=== PATIENT | male | born 1930 | race Caucasian/White ===

== ENCOUNTER → 2016-11-23 | Outpatient (CLI) | payer MEDICARE ==
[~2016-11-23] MED LIST: ALPR0.254 PO; CEFD300C37 PO; CHOL5000 PO; DOXY100T PO; FURO-93 PO; HYDR-3144 PO; LEVO137T3 PO; METO-93 PO; METO25TA9 PO; OMEP40CA6 PO; POTA10TA11 PO; POTA25TA4 PO; PRED5TAB PO; SILD50TA PO; SIMV80TA3 PO; SPIR25TA PO; SYMBICORT INHALER PO; TESTOSTERONE TP; TIOT18CA INH; WARF5TAB7 PO
== END | disposition home or self-care (01) ==
LOC: CFH 14:41
PROVIDERS: ATTEND Internal Medicine Gastroenterology
DX: K30 Functional dyspepsia (principal); J44.9 Chronic obstructive pulmonary disease, unspecified; D53.9 Nutritional anemia, unspecified; N19 Unspecified kidney failure; Z79.01 Long term (current) use of anticoagulants
CPT/HCPCS: 74220

== ENCOUNTER → 2016-12-06 | Outpatient (CLI) | payer MEDICARE | END | disposition home or self-care (01) | LOC: CFH 14:29 | PROVIDERS: ATTEND Internal Medicine Cardiovascular Disease | DX: I51.7 Cardiomegaly (principal); Z95.3 Presence of xenogenic heart valve; Z95.2 Presence of prosthetic heart valve | CPT/HCPCS: 93306 ==

== ENCOUNTER 2017-01-22 07:20 | Day surgery (SDC) | payer MEDICARE ==
[~2017-01-22] VITALS: Ht 175.3 cm; Wt 70.0 kg
[~2017-01-22 07:20] MED LIST changes: +ALPR0.25 PO; +ANAS1TAB3 PO; +BUDE10.2 PO; +DIGO125T6 PO; +GUAI-42 PO; +HYDR-879 PO; +LEVO150T PO; +LORA10TA75 PO; +METO25TA2 PO; +MULT-412 PO; +OMEP20TA62 PO; +OXYGEN NS; +POLY17PO5 PO; +SIMV40TA PO; +TEMA15CA6 PO; +TEST200V IM; +WARF5TAB PO
[2017-01-22] MEDS ORDERED: LACTATED RINGERS 1,000 ML IV SCH (07:51)
[2017-01-22 08:00] VITALS: BP 124/75
[2017-01-22 08:21] LABS: HEMATOCRIT 36.9 % (39.2-51.8); WHITE BLOOD COUNT 6.5 x10^3/uL (3.4-10)
[2017-01-22 08:33] LABS: ASPARTATE AMINO TRANSFERASE 30 U/L (15-37); BLOOD UREA NITROGEN 37 mg/dL (7-18)
[2017-01-22] MEDS ORDERED: FENTANYL PF 100 MCG/2ML ONE (08:49)
[2017-01-22] MEDS ORDERED: PROPOFOL 10 MG/ML, 20ML ONE (08:54)
[2017-01-22] MEDS ORDERED: HYDROcodone/APAP 7.5-325MG/15ML UDC ONE (09:24)
[2017-01-22] MEDS ORDERED: ALBUTEROL SULFATE 2.5 MG/3 ML NPPB PRN (09:30)
[2017-01-22] MEDS ORDERED: LABETALOL 5MG/ML, 20ML IV PRN (09:30)
[2017-01-22] MEDS ORDERED: FENTANYL PF 100 MCG/2ML IV PRN (09:30)
[2017-01-22] MEDS ORDERED: EPHEDRINE 50 MG/ML, 1ML IVPush PRN (09:30)
[2017-01-22] MEDS ORDERED: ACETAMINOPHEN 325 MG TABLET PO PRN (09:30)
[2017-01-22] MEDS ORDERED: HYDROmorphone 1 MG/ML, 1ML IV PRN (09:30)
[2017-01-22] MEDS ORDERED: ONDANSETRON 2MG/ML, 2ML IVPush PRN (09:30)
[2017-01-22] MEDS ORDERED: ALBUTEROL/IPRATROPIUM 2.5MG/0.5MG, 3 ML NPPB PRN (09:30)
[2017-01-22] MEDS ORDERED: METOPROLOL 1 MG/ML, 5ML IV PRN (09:30)
[2017-01-22] MEDS ORDERED: HYDROcodone/APAP 7.5-325MG/15ML UDC PO PRN (09:30)
== END 2017-01-22 11:25 ==
LOC: OUT 07:20
PROVIDERS: ATTEND Internal Medicine Gastroenterology
DX: K22.2 Esophageal obstruction (principal); K22.8 Other specified diseases of esophagus; I10 Essential (primary) hypertension; J44.9 Chronic obstructive pulmonary disease, unspecified; I48.91 Unspecified atrial fibrillation; I25.10 Atherosclerotic heart disease of native coronary artery without angina pectoris; E78.5 Hyperlipidemia, unspecified; E03.9 Hypothyroidism, unspecified; D50.9 Iron deficiency anemia, unspecified; Z87.39 Personal history of other diseases of the musculoskeletal system and connective tissue; Z87.891 Personal history of nicotine dependence; Z98.890 Other specified postprocedural states; Z88.8 Allergy status to other drugs, medicaments and biological substances
CPT/HCPCS: 36415; 43239; 43248; 80053; 85025; 85610; 85730; 88305; J2704; J3010; J7120

== ENCOUNTER 2017-02-22 03:13 | Inpatient (IN) | payer MEDICARE ==
[~2017-02-22] VITALS: Ht 172.7 cm; Wt 63.6 kg
[~2017-02-22 03:13] MED LIST changes: -HYDR-3144 PO; +HYDR-3245 PO
[2017-02-22] MEDS ORDERED: DILTIAZEM 5 MG/ML, 5ML ONE (03:19)
[2017-02-22] MEDS ORDERED: SODIUM CHLORIDE FLUSH 10ML SYR IVF ONE (03:30)
[2017-02-22] MEDS ORDERED: SODIUM CHLORIDE 0.9% 1,000ML IVBOLUS ONE (03:30)
[2017-02-22] MEDS ORDERED: DILTIAZEM 5 MG/ML, 5ML IV ONE (03:30)
[2017-02-22 03:33] LABS: HEMATOCRIT 40.7 % (39.2-51.8); WHITE BLOOD COUNT 9.2 x10^3/uL (3.4-10)
[2017-02-22 03:53] LABS: BLOOD UREA NITROGEN 48 mg/dL (7-18)
[2017-02-22] MEDS: DILTIAZEM 125 MG in DEXTROSE 5% 100 ML IV SCH ×3 (03:56→05:42)
[2017-02-22 03:59] LABS: ASPARTATE AMINO TRANSFERASE 35 U/L (15-37)
[2017-02-22 04:00] LABS: IS PT STATUS REG ER OR PRE ER? YES
[2017-02-22] MEDS ORDERED: ASPIRIN 325 MG TABLET ONE (04:23)
[2017-02-22] MEDS ORDERED: ASPIRIN 325 MG TABLET PO ONE (04:30)
[2017-02-22 05:13] VITALS: BP 96/57
[2017-02-22] MEDS ORDERED: SODIUM CHLORIDE 0.9% 1,000 ML IV SCH (05:24)
[2017-02-22] MEDS ORDERED: DILTIAZEM 5 MG/ML, 5ML IVPush PRN (05:30)
[2017-02-22] MEDS ORDERED: ONDANSETRON 2MG/ML, 2ML IVPush PRN (05:30)
[2017-02-22] MEDS ORDERED: hydrALAzine 20 MG/ML, 1ML IVPush PRN (05:30)
[2017-02-22] MEDS ORDERED: morphine SULFATE 10 MG/ML, 1ML IVPush PRN (05:30)
[2017-02-22] MEDS ORDERED: ACETAMINOPHEN 325 MG TABLET PO PRN (05:30)
[2017-02-22] MEDS ORDERED: ENOXAPARIN 30 MG/0.3 ML SQ SCH (06:00)
[2017-02-22 07:21] VITALS: BP 99/58
[2017-02-22] MEDS ORDERED: ALBUTEROL/IPRATROPIUM 2.5MG/0.5MG, 3 ML ONE ×2 (08:03→11:35)
[2017-02-22] MEDS: POLYETHYLENE GLYCOL 17 GM PACKET PO SCH (09:00)
[2017-02-22] MEDS: DIGOXIN 0.125 MG TABLET PO SCH (09:12)
[2017-02-22] MEDS: LORATADINE 10 MG TABLET PO SCH (09:12)
[2017-02-22] MEDS: LEVOTHYROXINE 150 MCG TABLET PO SCH (09:12)
[2017-02-22] MEDS: METOPROLOL SUCCINATE 25 MG TAB.ER.24H PO SCH (09:12)
[2017-02-22] MEDS: SILDENAFIL 20 MG TABLET PO SCH ×3 (09:13→20:44)
[2017-02-22 09:58] LABS: IS PT STATUS REG ER OR PRE ER? NO
[2017-02-22] MEDS ORDERED: ALBUTEROL SULFATE 2.5 MG/3 ML NPPB PRN (12:00)
[2017-02-22] MEDS ORDERED: HYDROcodone/APAP 10/325 MG TABLET ONE (12:13)
[2017-02-22] MEDS: HYDROcodone/APAP 10/325 MG TABLET PO PRN (12:16)
[2017-02-22] MEDS ORDERED: OMNIPAQUE 350 MG/ML, 150 ML BOTTLE ONE (12:51)
[2017-02-22 14:27] VITALS: BP 92/55
[2017-02-22] MEDS: ALBUTEROL/IPRATROPIUM 2.5MG/0.5MG, 3 ML NPPB SCH ×2 (15:00→20:00)
[2017-02-22] MEDS ORDERED: WARFARIN 5 MG TABLET PO-COUM SCH (18:00)
[2017-02-22 18:37] VITALS: BP 102/63
[2017-02-22] MEDS: SIMVASTATIN 40 MG TABLET PO SCH (20:44)
[2017-02-23 01:25] VITALS: BP 100/64
[2017-02-23 05:15] LABS: HEMATOCRIT 38.6 % (39.2-51.8); HEMOGLOBIN 12.5 g/dL (13.7-18.0); WHITE BLOOD COUNT 8.4 x10^3/uL (3.4-10)
[2017-02-23 05:25] LABS: BLOOD UREA NITROGEN 37 mg/dL (7-18)
[2017-02-23] MEDS: ALBUTEROL/IPRATROPIUM 2.5MG/0.5MG, 3 ML NPPB SCH ×4 (07:00→19:20)
[2017-02-23] MEDS ORDERED: METO25TA2 PO (07:55)
[2017-02-23] MEDS ORDERED: DIGO125T6 PO (07:55)
[2017-02-23] MEDS: FLUTICASONE/VILANTEROL 100-25MCG/INH INH SCH (08:35)
[2017-02-23] MEDS: SILDENAFIL 20 MG TABLET PO SCH ×3 (08:35→20:17)
[2017-02-23] MEDS: DIGOXIN 0.125 MG TABLET PO SCH (08:35)
[2017-02-23] MEDS: LEVOTHYROXINE 150 MCG TABLET PO SCH (08:35)
[2017-02-23] MEDS: METOPROLOL SUCCINATE 25 MG TAB.ER.24H PO SCH (08:35)
[2017-02-23] MEDS: LORATADINE 10 MG TABLET PO SCH (08:35)
[2017-02-23] MEDS: POLYETHYLENE GLYCOL 17 GM PACKET PO SCH (08:36)
[2017-02-23 08:46] VITALS: BP 98/59
[2017-02-23] MEDS: HYDROcodone/APAP 10/325 MG TABLET PO PRN (12:29)
[2017-02-23 14:02] VITALS: BP 88/58
[2017-02-23] MEDS ORDERED: DIGOXIN 0.25 MG/ML, 2ML IVPush ONE (15:00)
[2017-02-23 19:56] VITALS: BP 98/64
[2017-02-23] MEDS: SIMVASTATIN 40 MG TABLET PO SCH (20:16)
[2017-02-23] MEDS: CALCIUM CARBONATE 500 MG TAB.CHEW PO PRN (20:17)
[2017-02-24 01:29] VITALS: BP 86/52
[2017-02-24] MEDS: HYDROcodone/APAP 10/325 MG TABLET PO PRN (02:16)
[2017-02-24] MEDS: CALCIUM CARBONATE 500 MG TAB.CHEW PO PRN (03:09)
[2017-02-24] MEDS: LEVOTHYROXINE 150 MCG TABLET PO SCH (05:10)
[2017-02-24 07:41] VITALS: BP 99/65
[2017-02-24] MEDS ORDERED: DIGOXIN 0.25 MG/ML, 2ML IVPush ONE (08:00)
[2017-02-24] MEDS: POLYETHYLENE GLYCOL 17 GM PACKET PO SCH (08:19)
[2017-02-24] MEDS: FLUTICASONE/VILANTEROL 100-25MCG/INH INH SCH (08:19)
[2017-02-24] MEDS: DIGOXIN 0.125 MG TABLET PO SCH (08:20)
[2017-02-24] MEDS: METOPROLOL SUCCINATE 25 MG TAB.ER.24H PO SCH (08:20)
[2017-02-24] MEDS: SILDENAFIL 20 MG TABLET PO SCH (08:20)
[2017-02-24] MEDS: LORATADINE 10 MG TABLET PO SCH (08:20)
[2017-02-24] MEDS ORDERED: ALBUTEROL/IPRATROPIUM 2.5MG/0.5MG, 3 ML NPPB SCH (09:00)
== END 2017-02-24 12:33 | disposition home or self-care (01) | DRG 682 ==
LOC: ED 03:21 → EDIP 04:23 → 5SO 05:10
PROVIDERS: ADMIT Hospitalist
DX: N17.0 Acute kidney failure with tubular necrosis (principal); I50.43 Acute on chronic combined systolic (congestive) and diastolic (congestive) heart failure; E87.3 Alkalosis; J96.10 Chronic respiratory failure, unspecified whether with hypoxia or hypercapnia; E44.0 Moderate protein-calorie malnutrition; I48.91 Unspecified atrial fibrillation; D68.59 Other primary thrombophilia; I27.2 Other secondary pulmonary hypertension; D69.6 Thrombocytopenia, unspecified; J44.9 Chronic obstructive pulmonary disease, unspecified; J98.11 Atelectasis; E03.9 Hypothyroidism, unspecified; I11.0 Hypertensive heart disease with heart failure; Z88.8 Allergy status to other drugs, medicaments and biological substances; D63.8 Anemia in other chronic diseases classified elsewhere; K22.2 Esophageal obstruction; M19.90 Unspecified osteoarthritis, unspecified site; R13.19 Other dysphagia; Z79.01 Long term (current) use of anticoagulants; Z79.82 Long term (current) use of aspirin; Z87.891 Personal history of nicotine dependence; Z95.3 Presence of xenogenic heart valve; I99.8 Other disorder of circulatory system; Z68.21 Body mass index [BMI] 21.0-21.9, adult
CPT/HCPCS: 36415; 71010; 74220; 80048; 80053; 80162; 83735; 83880; 84100; 84439; 84443; 84484; 85025; 85610; 85730; 93005; 93306; 94640; 96361; 96374; J7620; Q9967; J1160; J7030

== ENCOUNTER 2017-03-05 14:49 | Inpatient (IN) | payer MEDICARE ==
[~2017-03-05] VITALS: Ht 175.3 cm; Wt 63.2 kg
[2017-03-05] MEDS ORDERED: ONDANSETRON 2MG/ML, 2ML IVPush ONE (15:30)
[2017-03-05] MEDS ORDERED: SODIUM CHLORIDE 0.9%, 500ML IVBOLUS ONE (15:30)
[2017-03-05] MEDS ORDERED: SODIUM CHLORIDE FLUSH 10ML SYR IVF ONE (15:30)
[2017-03-05 15:31] LABS: HEMATOCRIT 41.4 % (39.2-51.8); HEMOGLOBIN 13.6 g/dL (13.7-18.0); WHITE BLOOD COUNT 6.4 x10^3/uL (3.4-10)
[2017-03-05 15:43] LABS: BLOOD UREA NITROGEN 42 mg/dL (7-18)
[2017-03-05 15:49] LABS: ASPARTATE AMINO TRANSFERASE 32 U/L (15-37)
[2017-03-05 15:50] LABS: IS PT STATUS REG ER OR PRE ER? YES
[2017-03-05] MEDS ORDERED: PHYTONADIONE 10 MG/ML, 1ML IV ONE (16:00)
[2017-03-05] MEDS ORDERED: ONDANSETRON 2MG/ML, 2ML ONE (16:22)
[2017-03-05] MEDS ORDERED: PHYTONADIONE 10 MG/ML, 1ML ONE (16:51)
[2017-03-05] MEDS ORDERED: FUROSEMIDE 20 MG/2 ML IV ONE (17:30)
[2017-03-05 18:39] VITALS: BP 103/69
[2017-03-05] MEDS ORDERED: SODIUM CHLORIDE 0.9% 1,000 ML IV SCH (18:40)
[2017-03-05] MEDS ORDERED: hydrALAzine 20 MG/ML, 1ML IVPush PRN (19:00)
[2017-03-05 19:07] VITALS: BP 107/66
[2017-03-05 20:06] VITALS: BP 102/64
[2017-03-05] MEDS: DILTIAZEM 125 MG in SODIUM CHLORIDE 0.9% 100 ML IV PRN (20:17)
[2017-03-05] MEDS: SODIUM CHLORIDE 0.9% 1,000 ML IV SCH (20:53)
[2017-03-05 21:10] LABS: HEMATOCRIT 37.6 % (39.2-51.8); HEMOGLOBIN 12.5 g/dL (13.7-18.0); WHITE BLOOD COUNT 5.3 x10^3/uL (3.4-10)
[2017-03-05 21:15] VITALS: BP 105/69
[2017-03-06] MEDS: ONDANSETRON 2MG/ML, 2ML IVPush PRN ×2 (00:17→10:56)
[2017-03-06 01:15] VITALS: BP 100/65
[2017-03-06 01:53] VITALS: BP 101/61
[2017-03-06] MEDS: morphine SULFATE 10 MG/ML, 1ML IVPush PRN ×3 (01:54→13:06)
[2017-03-06] MEDS: SODIUM CHLORIDE 0.9% 1,000 ML IV SCH ×2 (03:31→10:56)
[2017-03-06 05:30] LABS: ASPARTATE AMINO TRANSFERASE 27 U/L (15-37); BLOOD UREA NITROGEN 38 mg/dL (7-18)
[2017-03-06] MEDS ORDERED: PANTOPRAZOLE 40 MG IV IVPush SCH (07:30)
[2017-03-06 07:51] VITALS: BP 100/57
[2017-03-06] MEDS: LEVOTHYROXINE 100 MCG INJ IVPush SCH (08:46)
[2017-03-06] MEDS: DILTIAZEM 125 MG in SODIUM CHLORIDE 0.9% 100 ML IV PRN (14:52)
[2017-03-06 15:00] VITALS: BP 93/57
[2017-03-06] MEDS: PANTOPRAZOLE 40 MG IV IVPush SCH (16:44)
[2017-03-06] MEDS ORDERED: SODIUM CHLORIDE 0.9% 1,000 ML IV SCH (18:40)
[2017-03-06 18:44] VITALS: BP 96/55
[2017-03-07 00:44] VITALS: BP 103/60
[2017-03-07] MEDS: morphine SULFATE 10 MG/ML, 1ML IVPush PRN ×5 (00:46→20:50)
[2017-03-07 05:22] VITALS: BP 107/59
[2017-03-07 05:47] LABS: HEMATOCRIT 35.7 % (39.2-51.8); HEMOGLOBIN 11.5 g/dL (13.7-18.0); WHITE BLOOD COUNT 6.1 x10^3/uL (3.4-10)
[2017-03-07] MEDS: METOPROLOL TARTRATE 25 MG TABLET PO SCH ×2 (06:00→18:18)
[2017-03-07 06:22] LABS: BLOOD UREA NITROGEN 26 mg/dL (7-18)
[2017-03-07 08:00] VITALS: BP 113/65
[2017-03-07] MEDS: PANTOPRAZOLE 40 MG IV IVPush SCH ×2 (09:02→18:11)
[2017-03-07] MEDS: LEVOTHYROXINE 100 MCG INJ IVPush SCH (09:03)
[2017-03-07] MEDS ORDERED: SUCCINYLCHOLINE 20 MG/ML, 10ML ONE (11:06)
[2017-03-07] MEDS ORDERED: PROPOFOL 10 MG/ML, 20ML ONE (11:06)
[2017-03-07] MEDS ORDERED: ONDANSETRON 2MG/ML, 2ML IVPush PRN (12:00)
[2017-03-07] MEDS ORDERED: LABETALOL 5MG/ML, 20ML IV PRN (12:00)
[2017-03-07] MEDS ORDERED: OXYcodone 5 MG/5 ML ORAL.SOL UDC PO PRN (12:00)
[2017-03-07] MEDS ORDERED: ACETAMINOPHEN 325 MG TABLET PO PRN (12:00)
[2017-03-07] MEDS ORDERED: HYDROmorphone 1 MG/ML, 1ML IV PRN (12:00)
[2017-03-07] MEDS ORDERED: hydrALAzine 20 MG/ML, 1ML IV PRN (12:00)
[2017-03-07] MEDS ORDERED: FENTANYL PF 100 MCG/2ML IV PRN (12:00)
[2017-03-07] MEDS ORDERED: METOCLOPRAMIDE 5 MG/ML, 2ML IV PRN (12:00)
[2017-03-07 13:48] VITALS: BP 121/57
[2017-03-07] MEDS: DILTIAZEM 60 MG TABLET PO SCH ×2 (18:10→21:22)
[2017-03-07] MEDS: ONDANSETRON 2MG/ML, 2ML IVPush PRN (18:17)
[2017-03-07 19:42] VITALS: BP 99/62
[2017-03-08 02:00] VITALS: BP 91/65
[2017-03-08 05:02] LABS: HEMATOCRIT 39.3 % (39.2-51.8); HEMOGLOBIN 12.8 g/dL (13.7-18.0); WHITE BLOOD COUNT 8.7 x10^3/uL (3.4-10)
[2017-03-08 05:09] LABS: BLOOD UREA NITROGEN 23 mg/dL (7-18)
[2017-03-08] MEDS: ONDANSETRON 2MG/ML, 2ML IVPush PRN ×2 (05:09→12:04)
[2017-03-08] MEDS: morphine SULFATE 10 MG/ML, 1ML IVPush PRN ×4 (05:09→20:53)
[2017-03-08] MEDS: DILTIAZEM 60 MG TABLET PO SCH ×3 (05:10→17:29)
[2017-03-08] MEDS: METOPROLOL TARTRATE 25 MG TABLET PO SCH ×3 (07:00→17:29)
[2017-03-08] MEDS: LEVOTHYROXINE 100 MCG INJ IVPush SCH (08:14)
[2017-03-08] MEDS: PANTOPRAZOLE 40 MG IV IVPush SCH ×2 (08:15→17:29)
[2017-03-08 08:19] VITALS: BP 101/50
[2017-03-08 09:00] VITALS: BP 97/54
[2017-03-08] MEDS: ENOXAPARIN 60 MG/0.6 ML SQ SCH ×2 (12:04→21:30)
[2017-03-08 14:22] VITALS: BP 107/64
[2017-03-08 18:50] VITALS: BP 98/67
[2017-03-09 00:09] VITALS: BP 109/61
[2017-03-09] MEDS: DILTIAZEM 60 MG TABLET PO SCH ×2 (00:23→05:30)
[2017-03-09] MEDS: ONDANSETRON 2MG/ML, 2ML IVPush PRN (03:36)
[2017-03-09] MEDS: METOPROLOL TARTRATE 25 MG TABLET PO SCH (05:30)
[2017-03-09 05:58] LABS: BLOOD UREA NITROGEN 32 mg/dL (7-18)
[2017-03-09 05:59] LABS: HEMATOCRIT 42.6 % (39.2-51.8); HEMOGLOBIN 14.1 g/dL (13.7-18.0); WHITE BLOOD COUNT 15.8 x10^3/uL (3.4-10)
[2017-03-09] MEDS: LEVOTHYROXINE 100 MCG INJ IVPush SCH (08:20)
[2017-03-09] MEDS: morphine SULFATE 10 MG/ML, 1ML IVPush PRN ×2 (08:20→23:49)
[2017-03-09] MEDS: PANTOPRAZOLE 40 MG IV IVPush SCH ×2 (08:20→16:36)
[2017-03-09 08:33] VITALS: BP 91/55
[2017-03-09] MEDS ORDERED: DIGOXIN 0.125 MG TABLET PO SCH (09:00)
[2017-03-09] MEDS: DIGOXIN 0.125 MG TABLET PO SCH (11:00)
[2017-03-09] MEDS ORDERED: SODIUM CHLORIDE 0.9%, 250ML IVBOLUS ONE (11:00)
[2017-03-09] MEDS: METOPROLOL TARTRATE 50 MG TABLET PO SCH ×2 (11:00→16:30)
[2017-03-09] MEDS: SODIUM CHLORIDE 0.9% 1,000 ML IV SCH (11:36)
[2017-03-09] MEDS: ENOXAPARIN 60 MG/0.6 ML SQ SCH ×2 (11:37→23:50)
[2017-03-09 14:10] VITALS: BP 94/61
[2017-03-09] MEDS ORDERED: GUAIFENESIN 200 MG TABLET PO PRN (16:00)
[2017-03-09] MEDS: WARFARIN 5 MG TABLET PO-COUM SCH (16:36)
[2017-03-09 19:49] VITALS: BP 109/72
[2017-03-10 00:46] VITALS: BP 111/73
[2017-03-10 05:51] LABS: ASPARTATE AMINO TRANSFERASE 22 U/L (15-37); BLOOD UREA NITROGEN 46 mg/dL (7-18)
[2017-03-10 05:54] LABS: HEMATOCRIT 40.3 % (39.2-51.8); HEMOGLOBIN 13.3 g/dL (13.7-18.0); WHITE BLOOD COUNT 11.9 x10^3/uL (3.4-10)
[2017-03-10] MEDS: METOPROLOL TARTRATE 50 MG TABLET PO SCH ×3 (08:00→17:17)
[2017-03-10 08:38] VITALS: BP 119/76
[2017-03-10] MEDS: PANTOPRAZOLE 40 MG IV IVPush SCH ×2 (08:41→17:15)
[2017-03-10] MEDS: LEVOTHYROXINE 100 MCG INJ IVPush SCH (08:49)
[2017-03-10] MEDS: DIGOXIN 0.125 MG TABLET PO SCH ×2 (08:51→09:00)
[2017-03-10] MEDS: SODIUM CHLORIDE 0.9% 1,000 ML IV SCH (08:52)
[2017-03-10] MEDS: ONDANSETRON 2MG/ML, 2ML IVPush PRN ×2 (09:03→16:08)
[2017-03-10] MEDS: morphine SULFATE 10 MG/ML, 1ML IVPush PRN ×2 (09:04→12:32)
[2017-03-10] MEDS ORDERED: ONABOTULINUMTOXINA 100 UNITS IM ONE (11:00)
[2017-03-10] MEDS ORDERED: DIGOXIN 0.125 MG TABLET PO ONE (11:00)
[2017-03-10] MEDS: WARFARIN 5 MG TABLET PO-COUM SCH (11:02)
[2017-03-10 11:44] VITALS: BP 123/77
[2017-03-10] MEDS: METOPROLOL 1 MG/ML, 5ML IVPush SCH ×3 (11:47→23:20)
[2017-03-10 13:21] VITALS: BP 110/74
[2017-03-10 17:14] VITALS: BP 122/85
[2017-03-10 20:34] VITALS: BP 126/81
[2017-03-10] MEDS: ENOXAPARIN 60 MG/0.6 ML SQ SCH (23:20)
[2017-03-11 02:29] VITALS: BP 127/71
[2017-03-11] MEDS: ONDANSETRON 2MG/ML, 2ML IVPush PRN ×3 (05:28→15:49)
[2017-03-11] MEDS: METOPROLOL 1 MG/ML, 5ML IVPush SCH ×4 (05:28→23:44)
[2017-03-11] MEDS: morphine SULFATE 10 MG/ML, 1ML IVPush PRN ×3 (05:33→21:03)
[2017-03-11] MEDS: METOPROLOL TARTRATE 50 MG TABLET PO SCH (06:00)
[2017-03-11] MEDS: SODIUM CHLORIDE 0.9% 1,000 ML IV SCH (07:12)
[2017-03-11 07:33] VITALS: BP 107/64
[2017-03-11] MEDS: DIGOXIN 0.125 MG TABLET PO SCH (07:59)
[2017-03-11] MEDS: PANTOPRAZOLE 40 MG IV IVPush SCH ×2 (09:59→18:09)
[2017-03-11] MEDS: LEVOTHYROXINE 100 MCG INJ IVPush SCH (09:59)
[2017-03-11] MEDS ORDERED: MIDAZOLAM 1 MG/ML, 2ML ONE (10:09)
[2017-03-11] MEDS ORDERED: FENTANYL PF 100 MCG/2ML ONE (10:09)
[2017-03-11] MEDS ORDERED: SUCCINYLCHOLINE 20 MG/ML, 10ML ONE (10:15)
[2017-03-11] MEDS ORDERED: PROPOFOL 10 MG/ML, 20ML ONE (10:15)
[2017-03-11] MEDS ORDERED: NEOSTIGMINE 1 MG/ML, 10ML ONE (10:15)
[2017-03-11] MEDS ORDERED: ONABOTULINUMTOXINA 100 UNITS ONE (10:19)
[2017-03-11 12:31] VITALS: BP 104/76
[2017-03-11 13:10] VITALS: BP 114/80
[2017-03-11] MEDS ORDERED: METOPROLOL 1 MG/ML, 5ML IVPush SCH (17:30)
[2017-03-11] MEDS: WARFARIN 5 MG TABLET PO-COUM SCH (18:00)
[2017-03-11 18:08] VITALS: BP 127/80
[2017-03-11 20:13] VITALS: BP 110/69
[2017-03-11] MEDS: ENOXAPARIN 60 MG/0.6 ML SQ SCH (23:44)
[2017-03-12] MEDS: morphine SULFATE 10 MG/ML, 1ML IVPush PRN ×4 (00:10→21:55)
[2017-03-12 02:00] VITALS: BP 116/82
[2017-03-12 05:31] LABS: HEMATOCRIT 42.2 % (39.2-51.8); HEMOGLOBIN 13.8 g/dL (13.7-18.0)
[2017-03-12 05:38] LABS: ASPARTATE AMINO TRANSFERASE 24 U/L (15-37); BLOOD UREA NITROGEN 58 mg/dL (7-18)
[2017-03-12] MEDS: METOPROLOL 1 MG/ML, 5ML IVPush SCH ×4 (05:38→23:45)
[2017-03-12 07:25] VITALS: BP 133/83
[2017-03-12] MEDS: DIGOXIN 0.125 MG TABLET PO SCH (07:51)
[2017-03-12] MEDS: PANTOPRAZOLE 40 MG IV IVPush SCH ×2 (07:57→17:14)
[2017-03-12] MEDS: LEVOTHYROXINE 100 MCG INJ IVPush SCH (07:57)
[2017-03-12] MEDS: SODIUM CHLORIDE 0.9% 1,000 ML IV SCH (07:57)
[2017-03-12 12:20] VITALS: BP 129/83
[2017-03-12] MEDS: WARFARIN 5 MG TABLET PO-COUM SCH (17:15)
[2017-03-12 21:33] VITALS: BP 131/81
[2017-03-12] MEDS: ENOXAPARIN 60 MG/0.6 ML SQ SCH (23:45)
[2017-03-13 01:03] VITALS: BP 133/79
[2017-03-13] MEDS: DILTIAZEM 5 MG/ML, 5ML IVPush PRN ×2 (03:45→17:47)
[2017-03-13] MEDS: SODIUM CHLORIDE 0.9% 1,000 ML IV SCH (03:53)
[2017-03-13] MEDS: morphine SULFATE 10 MG/ML, 1ML IVPush PRN ×3 (04:05→16:19)
[2017-03-13 04:08] VITALS: BP 106/69
[2017-03-13 05:35] VITALS: BP 103/68
[2017-03-13] MEDS ORDERED: DILTIAZEM 5 MG/ML, 5ML IVPush ONE (05:35)
[2017-03-13 06:13] LABS: HEMATOCRIT 44.2 % (39.2-51.8); HEMOGLOBIN 14.2 g/dL (13.7-18.0)
[2017-03-13 06:23] LABS: ASPARTATE AMINO TRANSFERASE 19 U/L (15-37); BLOOD UREA NITROGEN 62 mg/dL (7-18)
[2017-03-13 07:02] VITALS: BP 120/74
[2017-03-13] MEDS: DIGOXIN 0.125 MG TABLET PO SCH (09:00)
[2017-03-13] MEDS: LEVOTHYROXINE 100 MCG INJ IVPush SCH (11:08)
[2017-03-13] MEDS: PANTOPRAZOLE 40 MG IV IVPush SCH ×2 (11:08→21:22)
[2017-03-13] MEDS: SODIUM CHLORIDE 0.45% 1,000 ML IV SCH (11:08)
[2017-03-13 12:19] VITALS: BP 138/81
[2017-03-13] MEDS: WARFARIN 5 MG TABLET PO-COUM SCH (16:55)
[2017-03-13 20:00] VITALS: BP 121/77
[2017-03-13] MEDS: ENOXAPARIN 60 MG/0.6 ML SQ SCH (21:22)
[2017-03-14 00:29] VITALS: BP 131/94
[2017-03-14] MEDS: DILTIAZEM 5 MG/ML, 5ML IVPush PRN ×4 (02:21→22:27)
[2017-03-14] MEDS: SODIUM CHLORIDE 0.45% 1,000 ML IV SCH ×2 (02:24→12:40)
[2017-03-14] MEDS: DIGOXIN 0.125 MG TABLET PO SCH (07:56)
[2017-03-14 08:06] VITALS: BP 111/79
[2017-03-14] MEDS: PANTOPRAZOLE 40 MG IV IVPush SCH ×2 (08:10→20:16)
[2017-03-14] MEDS: morphine SULFATE 10 MG/ML, 1ML IVPush PRN ×4 (08:10→18:07)
[2017-03-14] MEDS: LEVOTHYROXINE 100 MCG INJ IVPush SCH (08:11)
[2017-03-14] MEDS: ENOXAPARIN 60 MG/0.6 ML SQ SCH ×2 (08:11→22:28)
[2017-03-14 11:28] VITALS: BP 129/80
[2017-03-14] MEDS ORDERED: LORazepam 2 MG/ML, 1ML IV PRN (11:30)
[2017-03-14] MEDS: WARFARIN 5 MG TABLET PO-COUM SCH (18:07)
[2017-03-14 20:00] VITALS: BP 123/83
[2017-03-14 22:15] VITALS: BP 121/79
[2017-03-14 23:06] VITALS: BP 125/84
[2017-03-15] MEDS ORDERED: MORPHINE SULFATE 4 MG/ML, 1ML ONE ×2 (00:23→04:19)
[2017-03-15] MEDS: morphine SULFATE 10 MG/ML, 1ML IVPush PRN ×3 (00:26→07:40)
[2017-03-15 01:41] VITALS: BP 98/70
[2017-03-15 03:03] VITALS: BP 113/66
[2017-03-15] MEDS: SODIUM CHLORIDE 0.45% 1,000 ML IV SCH ×2 (03:10→15:20)
[2017-03-15 06:45] VITALS: BP 107/71
[2017-03-15] MEDS: LEVOTHYROXINE 100 MCG INJ IVPush SCH (07:41)
[2017-03-15] MEDS: ENOXAPARIN 60 MG/0.6 ML SQ SCH ×2 (07:41→19:47)
[2017-03-15] MEDS: PANTOPRAZOLE 40 MG IV IVPush SCH ×2 (07:41→17:23)
[2017-03-15] MEDS ORDERED: morphine SULFATE 125 MG in SODIUM CHLORIDE 0.9% 237.5 ML IV PRN (08:32)
[2017-03-15] MEDS: DIGOXIN 0.125 MG TABLET PO SCH (09:00)
[2017-03-15] MEDS ORDERED: SCOPOLAMINE PATCH, 1.5MG PATCH.TD72 TD ONE (09:00)
[2017-03-15 13:09] VITALS: BP 115/70
[2017-03-15] MEDS: WARFARIN 5 MG TABLET PO-COUM SCH (15:24)
[2017-03-15 20:46] VITALS: BP 79/53
== END 2017-03-15 23:09 | disposition expired | DRG 682 ==
LOC: ED 17:21 → EDIP 17:22 → ED 17:25 → 5SO 18:04 → 3NW 03-14 14:35
PROVIDERS: ADMIT Internal Medicine; ATTEND Internal Medicine
PROC: 0D758ZZ Dilation of Esophagus, Via Natural or Artificial Opening Endoscopic (ICD-10-PCS; principal; 2017-03-07 11:00)
PROC: 0D737ZZ Dilation of Lower Esophagus, Via Natural or Artificial Opening (ICD-10-PCS; 2017-03-11)
PROC: 3E0G8GC Introduction of Other Therapeutic Substance into Upper GI, Via Natural or Artificial Opening Endoscopic (ICD-10-PCS; 2017-03-11)
PROC: 0DB58ZX Excision of Esophagus, Via Natural or Artificial Opening Endoscopic, Diagnostic (ICD-10-PCS; 2017-03-11)
PROC: 0DB68ZX Excision of Stomach, Via Natural or Artificial Opening Endoscopic, Diagnostic (ICD-10-PCS; 2017-03-11)
DX: N17.0 Acute kidney failure with tubular necrosis (principal); G93.40 Encephalopathy, unspecified; J96.11 Chronic respiratory failure with hypoxia; E46 Unspecified protein-calorie malnutrition; K22.0 Achalasia of cardia; E87.0 Hyperosmolality and hypernatremia; D68.9 Coagulation defect, unspecified; D68.69 Other thrombophilia; I13.0 Hypertensive heart and chronic kidney disease with heart failure and stage 1 through stage 4 chronic kidney disease, or unspecified chronic kidney disease; M48.54XA Collapsed vertebra, not elsewhere classified, thoracic region, initial encounter for fracture; I48.91 Unspecified atrial fibrillation; K22.2 Esophageal obstruction; I50.9 Heart failure, unspecified; I27.2 Other secondary pulmonary hypertension; E87.5 Hyperkalemia; E03.9 Hypothyroidism, unspecified; D72.829 Elevated white blood cell count, unspecified; Z68.20 Body mass index [BMI] 20.0-20.9, adult; E78.5 Hyperlipidemia, unspecified; I25.10 Atherosclerotic heart disease of native coronary artery without angina pectoris; I25.2 Old myocardial infarction; J44.9 Chronic obstructive pulmonary disease, unspecified; K29.70 Gastritis, unspecified, without bleeding; K80.20 Calculus of gallbladder without cholecystitis without obstruction; M19.90 Unspecified osteoarthritis, unspecified site; N18.9 Chronic kidney disease, unspecified; R13.19 Other dysphagia; R62.7 Adult failure to thrive; Z51.5 Encounter for palliative care; Z66 Do not resuscitate; Z79.01 Long term (current) use of anticoagulants; Z87.891 Personal history of nicotine dependence; Z95.3 Presence of xenogenic heart valve; Z99.81 Dependence on supplemental oxygen
CPT/HCPCS: 36415; 71010; 71260; 74220; 80048; 80053; 80162; 81001; 83540; 83550; 83605; 83690; 83735; 83880; 84100; 84443; 84484; 85025; 85610; 87040; 87086; 88305; 93005; 96374; 96375; J0585; J1650; J2250; J2405; J2704; J2710; J3010; J3430; C9113; J0330; J0360; J2060; J2270; J7030; J7040; J7050